=== PATIENT | female | born 1960 | race Two or more races ===

== ENCOUNTER 2018-06-15 09:37 | Outpatient (CLI) | payer OTHER ==
[~2018-06-15] VITALS: Ht 152.4 cm; Wt 83.0 kg
== END 2018-06-15 09:55 | disposition home or self-care (01) ==
LOC: OFIC 805 09:37
DX: J31.0 Chronic rhinitis (principal); H93.13 Tinnitus, bilateral; R43.0 Anosmia

== ENCOUNTER 2018-06-28 11:26 | Outpatient (CLI) | payer OTHER | END 2018-06-28 11:40 | disposition home or self-care (01) | LOC: TOM 11:26 | DX: J32.8 Other chronic sinusitis (principal); R43.8 Other disturbances of smell and taste ==